=== PATIENT | male | born 1975 | race Caucasian/White ===

== ENCOUNTER 2021-02-04 12:03 | Observation (INO) | payer SELFPAY ==
[~2021-02-04] VITALS: Ht 172.7 cm; Wt 118.2 kg
[2021-02-04 12:07] VITALS: Ht 172.7 cm; Wt 118.2 kg
[2021-02-04] MEDS ORDERED: CELEXA40 MG PO (12:11)
[2021-02-04] MEDS ORDERED: TESTRON (12:13)
[2021-02-04] MEDS ORDERED: ZEGERID OTC 201 EACH (12:14)
[2021-02-04 12:54] LABS: BASOPHILS 1.4 % (0-2); EOSINOPHILS 3.1 % (0-7); HEMATOCRIT 45.4 % (42.0-54.0); HEMOGLOBIN 15.4 g/dL (13.5-17.5); LYMPHOCYTES 32.1 % (15-50); MCH 31.2 pg (26.0-34.0); MCHC 33.9 g/dL (31.0-37.0); MEAN PLATELET VOLUME 7.8 fL (7.4-10.4); MONOCYTES 9.6 % (2-11); NEUTROPHILS 53.8 % (40-80); PLATELET COUNT 268 10x3/uL (130-400); RBC 4.93 10x6/uL (4.20-6.10); RDW 13.8 % (11.5-14.5); WBC 8.4 10x3/uL (4.8-10.8)
[2021-02-04 12:56] LABS: CALC OSMOLALITY 280 mosm/kg (275-300); CALCIUM 8.7 mg/dL (8.5-10.1); CARBON DIOXIDE 24.4 mmol/L (21.0-32.0); CHLORIDE - SERUM 104 mmol/L (98-107); CREATININE - SERUM 0.8 mg/dL (0.6-1.3); GLUCOSE 128 mg/dL (74-106); INR 1.08 (0.85-1.17); POTASSIUM - SERUM 3.8 mmol/L (3.5-5.1); SODIUM 140 mmol/L (136-145); UREA NITROGEN 13 mg/dL (7-18); eGFR NON AFRICAN AMERICAN > 90 mL/min (90-120)
[2021-02-04 12:57] LABS: APTT 32.2 SECONDS (22.8-39.4)
[2021-02-04 13:12] LABS: ALBUMIN 4.8 g/dL (3.4-5.0); ALKALINE PHOSPHATASE 73 U/L (30-120); ALT (SGPT) 29 U/L (10-68); BILIRUBIN - TOTAL 0.26 mg/dL (0.2-1.3); CKMB 0.5 U/L (0.0-3.6); CREATINE KINASE 65 UL (21-232); MAGNESIUM - SERUM 2.1 mg/dL (1.8-2.4); PROTEIN - SERUM 7.2 g/dL (6.4-8.2); TROPONIN-I < 0.017 ng/mL (0.000-0.060)
[2021-02-04 15:19] VITALS: BP 143/94
[2021-02-04 16:01] VITALS: BP 143/94
--- NOTE | 2021-02-04 16:02 | NUR ---
REPORT RECIEVED FROM ED, PATIENT TO UNIT SOON.
--- NOTE | 2021-02-04 16:04 | NUR ---
NORMAL SALINE STOPPED AT 1545 BY NURSE AT PATIENT REQUEST . PATIENT RECEIVED 900ML OF BOLUS.
--- NOTE | 2021-02-04 16:11 | NUR ---
PATEINT ARRIVED TO UNIT FROM ED VIA WHEELCHAIR. PATIENT IN NO DISTRESS AT THIS TIME.
== END 2021-02-04 16:48 | disposition left against medical advice (07) ==
LOC: D.ER 12:03 → D.EDHOLD 13:30 → D.M2 13:30 → D.EDHOLD 13:30 → OBSVTIME 13:30 → D.M2 15:48
PROVIDERS: Family Medicine; ADMIT Emergency Medicine; ATTEND Emergency Medicine
DX: R07.9 Chest pain, unspecified (principal); I20.0 Unstable angina; K21.9 Gastro-esophageal reflux disease without esophagitis; F32.9 Major depressive disorder, single episode, unspecified; F41.9 Anxiety disorder, unspecified; F17.200 Nicotine dependence, unspecified, uncomplicated; R06.09 Other forms of dyspnea; E66.9 Obesity, unspecified; Z68.39 Body mass index [BMI] 39.0-39.9, adult